=== PATIENT | male | born 1945 | race Caucasian/White ===

== ENCOUNTER → 2023-11-25 15:09 | Outpatient (CLI) | payer MEDICARE, OTHER, SELFPAY ==
--- NOTE | 2023-11-25 15:11 | DI.MRI.S_ITS ---
PROCEDURE: MR PELIS WO/W CON INDICATIONS: elevated PSA TECHNIQUE: Coronal HASTE, axial T1 FSE with fat saturation, 3-plane nonbreath-hold T2 FSE. After the administration of contrast, dynamic axial, delayed axial and coronal VIBE or 2-D FLASH with fat saturation through the pelvis. Diffusion weighted imaging and ADC was performed. COMPARISON: None. FINDINGS: Image quality: Diffusion weighted and dynamic contrast enhanced images are diagnostic. Prostate: Gland size is 6.5 x 5.3 by 6.5 cm; ellipsoid gland volume is 116 mL. Lesion 1: Curvilinear bandlike area moderate T2 hypointensity involving the left lateral transition zone and trace amount of the left peripheral zone at the mid gland level. This is seen on series 4, image 14 and series 5, image 9. Size: Roughly 2.6 cm. AP diameter T2W signal: Moderately hypointense DWI signal: Normal, no abnormality ADC signal: Mildly hypointense Enhancement: No Extracapsular extension: No PI-RADS score: 3, differential diagnosis includes fibrosis. Lesion 2: Location: Right anterior transition zone near the gland base contains an indistinct around mildly T2 hypointense nodule. This measures 0.9 cm AP diameter on ADC series 24, image 11, coronal series 5, image 9. , Size: 0.9 cm. T2W signal: Mildly hypointense DWI signal: Mildly hyperintense ADC signal: Mildly hypointense Enhancement: Yes Extracapsular extension: No PI-RADS score: 2, differential diagnosis includes atypical BPH nodule. Genitourinary system: Bladder wall thickness is normal. Ovoid hypointense dependent bladder calculus measuring 1.3 cm. Distal ureters are non distended. Small right hydrocele. Bowel and peritoneum: No pathologic free pelvic fluid. Inferior colon and small bowel loops are normal in caliber. Nodes and vessels: No pelvic or inguinal adenopathy by size criteria. Iliac vessels are normal in caliber. Soft tissues: No inguinal hernias. Bones: Marrow demonstrates normal overall signal, without lesions to suggest metastases. IMPRESSION: 1. No PI-RADS 4 or 5 lesions for targeted biopsy 2. Moderate prostatomegaly with BPH morphology. 3. PI-RADS 2 and 3 lesions as described above. Dictated by: Lenora Cano M.D. on 11/27/2023 at 0:01 Approved by: Lenora Cano M.D. on 11/27/2023 at 0:22
== END ==
LOC: MRI 15:10
PROVIDERS: PCP Family Medicine; Referring Provider Specialist; Visit Provider Specialist
DX: N40.0 Benign prostatic hyperplasia without lower urinary tract symptoms (principal); N42.9 Disorder of prostate, unspecified; R97.20 Elevated prostate specific antigen [PSA]; Z87.442 Personal history of urinary calculi
CPT/HCPCS: 72197; A9579

== ENCOUNTER → 2024-07-19 08:57 | Outpatient (CLI) | payer MEDICARE, OTHER, SELFPAY ==
--- NOTE | 2024-07-19 08:59 | DI.RAD.S_ITS ---
PROCEDURE: XR KUB INDICATIONS: Bladder calculus TECHNIQUE: One view of the abdomen acquired. COMPARISON: None. FINDINGS: Surgical changes and devices: None. Bowel: Bowel gas pattern is normal. Soft tissues: There is a calcification to the left of midline projecting over the left pubic symphysis, possibly representing a bladder stone. It measures approximately 10 mm in maximum diameter. Visualized solid organ contours appear normal in size. Bones: No suspicious bony lesions. IMPRESSION: Calcification projecting over the left pubic symphysis may represent a bladder stone. Dictated by: Teodoro Roach M.D. on 07/19/2024 at 10:24 Approved by: Teodoro Roach M.D. on 07/19/2024 at 10:29
== END ==
PROVIDERS: PCP Family Medicine; Referring Provider Urology; Visit Provider Urology
DX: N21.0 Calculus in bladder (principal); N40.1 Benign prostatic hyperplasia with lower urinary tract symptoms; N13.8 Other obstructive and reflux uropathy; R97.20 Elevated prostate specific antigen [PSA]; Z87.442 Personal history of urinary calculi
CPT/HCPCS: 51798; 74018; 81002; 99214

== ENCOUNTER 2024-10-16 06:17 | Day surgery (SDC) | payer MEDICARE, OTHER, SELFPAY ==
[2024-08-27 07:34] VITALS: BMI 27.3
[2024-10-16] VITALS (7 sets, daily range): BP systolic 120–155; BP diastolic 54–79; PULSE 60–84; RESP 11–17; TEMP 36.2–36.6; O2SAT 96–99; BMI 27.6
[2024-10-16] MEDS: LACTATED RINGERS 1,000 ML 42 ML IV (06:43)
--- NOTE | 2024-10-16 07:42 | PM.PREOP ---
Pre-operative Note COVID-19 COVID-19 status: Not tested Interval Note History & Physical reviewed/Exam performed by Physician: Yes Changes to H&P: No
[2024-10-16] MEDS: CEFAZOLIN 2 GM/100 ML PREMIX 100 ML IV (07:45)
--- NOTE | 2024-10-16 08:19 | SUR.OPER ---
Lithotomy on padded OR bed, head on pillow, arms secured on padded arm boards at <90 degrees abduction. Legs secured in padded yellow fins stirrups.
--- NOTE | 2024-10-16 08:45 | P.OP_ITS ---
Procedure & Clinicians Procedure: Cystolitholapaxy mechanical and laser Same procedure as scheduled: Yes Indications: This 79-year-old gentleman was found to have a 2-1/2 cm bladder stone presents at this time for cystolitholapaxy to remove the bladder stone. Surgeon: Boo Hong Click Yes if Unassisted: Yes Anesthesia Type: General Operative Notes Findings: Urethra is normal along its length with normal mucosa, the urethral meatus is normal, the sphincter as well coapted, the prostate exhibits moderate approachi ng severe obstructive character with a nodule bulging into the bladder based on the right lateral lobe. The ureteral orifices in normal position with clear efflux. The bladder exhibits severe trabeculation a few cellules no mucosal abnormalities. The stone is noted in the bladder floor it was rather ovoid in shape and a proximally 2-1/2 cm. It appeared to be a very hard stone thus necessitating both laser and mechanical treatment. There were no other abnormalities within the bladder. And all of the large stone fragments were evacuated. Closure Type: not applicable Specimen(s): other (Bladder stone fragments for compositional analysis) Prosthetic devices, grafts, tissues, transplants, or devices: None Estimated Blood Loss (mL): 5 Blood products transfused: none Procedure in detail: Procedure in detail: After informed consent was obtained, the patient was identified brought to the operating room where he was placed in the supine position on the table. Once there anesthesia was induced and maintained. Ensuring an adequate level of anesthesia the patient was transitioned to the lithotomy position where he was prepped, draped in his standard fashion and prepared for Transurethral procedure. After time-out, antibiotics, ensuring an adequate level of anesthesia a 22 American cystoscope was passed through the urethra prostate and into the bladder where cystoscopy was performed. The stone was identified the mechanical lithotrite was inserted and some edges of the stone were dusted off it was very apparent that it was a hard stone therefore the standard working bridge was exchanged for the lithotrite and a laser fiber (550) was inserted and laser energy applied to the stone by dusting it into larger fragments. With this accomplished the laser was placed on standby and reserved. The mechanical lithotrite was once again inserted in the larger fragments further busted up. They was were then ?washed out? of the bladder till no large fragments remained. On the prostate there were some points of bleeding these were controlled with the Bugbee electrode. And at the end of the procedure hemostasis was good all the large fragments had been removed the patient tolerated the procedure well and he was awakened transferred to the postanesthesia care unit for recovery. There were no complications Complications: none Post-operative Condition: stable Disposition: PACU Plan for aftercare: Patient to be discharged to home after fully awake and alert to follow up my office in 10-14 days.
[2024-10-16] MEDS: ONDANSETRON 4 MG/2 ML INJ IV (09:02)
[2024-10-16] MEDS: PHENAZOPYRIDINE 100 MG TABLET 200 MG PO (09:16)
== END 2024-10-16 09:35 | disposition home or self-care (01) ==
PROVIDERS: PCP Family Medicine; Referring Provider Urology; Visit Provider Urology
PROC: 0TCB8ZZ Extirpation of Matter from Bladder, Via Natural or Artificial Opening Endoscopic (ICD-10-PCS; CPT 52318; principal; 2024-10-16 07:45)
DX: N21.0 Calculus in bladder (principal)
CPT/HCPCS: 52318; 82365; 82962; J0690; J2405; J2704; J3010

== ENCOUNTER → 2024-10-29 14:01 | Outpatient (CLI) | payer MEDICARE, OTHER, SELFPAY | PROVIDERS: PCP Family Medicine; Visit Provider Urology | DX: N40.1 Benign prostatic hyperplasia with lower urinary tract symptoms (principal); N13.8 Other obstructive and reflux uropathy; R97.20 Elevated prostate specific antigen [PSA]; N21.0 Calculus in bladder; Z87.442 Personal history of urinary calculi | CPT/HCPCS: 51798; 81002; 87086; 99213 ==

== ENCOUNTER → 2024-11-05 15:28 | Outpatient (CLI) | payer MEDICARE, OTHER, SELFPAY | PROVIDERS: PCP Family Medicine; Visit Provider Urology | DX: N40.1 Benign prostatic hyperplasia with lower urinary tract symptoms (principal); N13.8 Other obstructive and reflux uropathy | CPT/HCPCS: 87086 ==

== ENCOUNTER → 2024-11-23 13:33 | Outpatient (CLI) | payer MEDICARE, OTHER, SELFPAY ==
[2024-11-23 14:53] LABS: Prostate Specific Antigen 7.85 ng/mL (0.10-4.00)
== END ==
PROVIDERS: PCP Family Medicine; Referring Provider Urology; Visit Provider Urology
DX: R97.20 Elevated prostate specific antigen [PSA] (principal)
CPT/HCPCS: 36415; 84153

== ENCOUNTER → 2025-01-17 12:15 | Outpatient (CLI) | payer MEDICARE, OTHER, SELFPAY ==
--- NOTE | 2025-01-17 12:17 | DI.RAD.S_ITS ---
PROCEDURE: XR KUB INDICATIONS: HX of renal calculi TECHNIQUE: One view of the abdomen acquired. COMPARISON: [facility], CR, XR KUB, 07/19/2024, 8:57. FINDINGS: Surgical changes and devices: None. Bowel: Bowel gas pattern is normal. Soft tissues: No suspicious abdominal calcifications. Visualized solid organ contours appear normal in size. Bones: No suspicious bony lesions. IMPRESSION: No acute abnormality. Dictated by: Fermin Matthews M.D. on 01/17/2025 at 16:42 Approved by: Fermin Matthews M.D. on 01/17/2025 at 16:43
== END ==
PROVIDERS: PCP Family Medicine; Referring Provider Urology; Visit Provider Urology
DX: N40.1 Benign prostatic hyperplasia with lower urinary tract symptoms (principal); N13.8 Other obstructive and reflux uropathy; Z87.442 Personal history of urinary calculi
CPT/HCPCS: 74018